=== PATIENT | male | born 1965 | race Caucasian/White ===

== ENCOUNTER 2024-01-22 12:39 | Emergency (ER) | payer MEDICARE, MEDICAID ==
[~2024-01-22] VITALS: Ht 175.3 cm; Wt 97.2 kg
[2024-01-22 13:32] VITALS: TEMP 97.8
[2024-01-22] MEDS ORDERED: FLUT16SP2 BOTHNARES (16:08)
[2024-01-22] MEDS ORDERED: MONT-48 PO (16:08)
[2024-01-22] MEDS ORDERED: AZIT250T83 PO (16:08)
[2024-01-22] MEDS ORDERED: PRED20TA PO (16:08)
[2024-01-22 16:33] VITALS: BP 176/98; PULSE 77; RESP 16; O2SAT 95
== END 2024-01-22 16:40 | disposition home or self-care (01) ==
LOC: ER 12:39
DX: J31.0 Chronic rhinitis (principal); R05.9 Cough, unspecified; R06.02 Shortness of breath; Z20.822 Contact with and (suspected) exposure to COVID-19
CPT/HCPCS: 71045; 99283